=== PATIENT | female | born 1965 | race Caucasian/White ===

== ENCOUNTER 2023-09-01 14:53 | Emergency (ER) | payer OTHER, SELFPAY ==
[2023-09-01 14:55] VITALS: BP 104/32; PULSE 76; RESP 18; TEMP 36.7; O2SAT 96
--- NOTE | 2023-09-01 15:00 | DI.RAD_ITS ---
Exam(s) XR SHOULDER LT COMPLETE 2+V EXAM: XR SHOULDER LT COMPLETE 2+V CLINICAL HISTORY: L shoulder pain; fall. TECHNIQUE: 2D digital imaging was performed. Three views. COMPARISON: No exams were available for comparison FINDINGS: BONES: No acute fracture is present. No bony destructive lesion is seen. A screw is noted at the inf erior border of the scapula. JOINTS: Anterior shoulder dislocation. SOFT TISSUE: Normal. IMPRESSION: Anterior shoulder dislocation. DATA REPOSITORY: RADIATION DOSE DELIVERED:
--- NOTE | 2023-09-01 15:10 | ED.GENADUL_ITS ---
Discharge Plan Disposition Patient Disposition: Home Condition: Improving Discharge Details Chief Complaint: Orthopedic Clinical Impression: Prominence of orthopedic screw, Dislocation of shoulder Primary Care Provider: Unknown,Unknown ED Provider: Alfred Taylor Discharge Instructions Instructions: Shoulder Dislocation (ED) Additional Instructions: Please use sling as instructed. Continue with ibuprofen and/or acetaminophen as needed for pain. Follow-up close with orthopedic team next week. Please return to the emerged part for any worsening symptoms HPI General Date/Time Provider Initiated Documentation: 09/01/23 15:01 . HPI Narrative: 58-year-old female history of recurrent right shoulder dislocations, prior orthopedic procedure to right shoulder, presents after slipping and falling in mud, falling onto her right shoulder feels dislocated to her. No other injuries Related Data Allergies Allergy/AdvReac Type Severity Reaction Status Date / Time amoxicillin [From Augmentin] Allergy Intermediate Skin Rash Verified 09/01/23 15:00 clavulanic acid Allergy Intermediate Skin Rash Verified 09/01/23 15:00 [From Augmentin] General Stated Complaint: Orthopedic MARYSOL: 4 Review of Systems Narrative: Review of Systems Constitutional: negative Eyes: negative ENT: negative Cardiovascular: negative Respiratory: negative Gastrointestinal: negative : negative Musculoskeletal: Shoulder dislocation Skin: negative Neurologic: negative Psych: negative Exam Narrative Exam Narrative: Physical Examination General: alert, awake, cooperative, resting comfortably, no acute distress HEENT: normocephalic, atraumatic; PERRL, EOM intact, conjunctiva normal; no nasal discharge Neck: supple, trachea midline; full ROM Chest: normal to inspection Respiratory: normal respiratory effort, speaking in full sentences Skin: no lesions, rashes or trauma appreciated Neuro: AAOx3, normal speech Extremities: Holding right upper extremity adducted to side, empty glenoid fossa, radial pulse intact, median radial and ulnar nerve distribution intact Psych: Appropriate mood and affect Course Vital Signs Vital signs: Vital Signs Temperature 36.7 C 09/01/23 14:55 Pulse 76 09/01/23 14:55 Respiratory Rate 18 09/01/23 14:55 Blood Pressure 104/32 L 09/01/23 14:55 Pulse Oximetry 96 09/01/23 14:55 Temperature 36.7 C 09/01/23 14:55 Temperature Source Skin 09/01/23 14:55 Pulse 76 09/01/23 14:55 Respiratory Rate 18 09/01/23 14:55 Blood Pressure 104/32 L 09/01/23 14:55 Blood Pressure Position Sitting 09/01/23 14:55 Pulse Oximetry 96 09/01/23 14:55 Oxygen Delivery Method Room Air 09/01/23 14:55 Oxygen Flow Rate 0 09/01/23 14:55 Pain Level 10 09/01/23 14:55 Procedures Orthopedic Joint Reduction Joint #1: Side: right Joint Reduction Location: shoulder Analgesia: procedural sedation Shoulder Technique Used (if applicable): traction/counter-traction and external rotation Post-reduction neuro exam: intact Procedural Sedation ASA Class: I Preparation: panel monitor applied, pulse oximeter, capnometry used and suction/airway equipment at bedside IV Propofol dose (mg): 40 Patient Tolerated Procedure: well Medical Decision Making 58-year-old female history of prior shoulder dislocations presents after fall and mild on her right side, empty glenoid fossa on the right arm held in adduction to side, neurovascular exam of limb intact. No evidence of cranial thoracoabdominal trauma. Hemodynamically stable. Patient Dors that she is normally able to get her shoulder back in without medication and would like to attempt such a process. Will obtain bedside portable x-ray to confirm dislocation and exclude concomitant fracture. 15: 59 procedural sedation with propofol given level of discomfort with initial bedside manipulation. Patient placed on capnography, airway equipment at bedside, respiratory team at bedside, 0.5 mg/kg IV bolus of propofol administered, downward traction external rotation with improved anatomical alignment, placed in sling awaiting confirmatory post reduction x-ray. Patient remains neurologically intact, is returning to baseline 16: 19 patient still with some shoulder pain however glenoid is full, x-ray showing likely dislodged orthopedic screw, high clinical suspicion for concomitant rotator cuff injury, patient in sling more comfortable at this time, obtaining CT shoulder to better delineate joint anatomy. Will need close orthopedic follow-up for likely hardware removal and possible rotator cuff repair. Analgesia anti-inflammatory initiated. Patient has recovered from procedural sedation. 17: 00 patient resting comfortably no acute distress. Shoulder reduced. Prior orthopedic fixation screw within subscapularis muscle likely dislodged from initial dislocation. Patient given close follow-up with orthopedic surgery given high likelihood for rotator cuff injury as well as likely need for removal of old hardware. Quality:SDOH Health Related Social Needs: No Data to Display [facility] All Active Problems (Updated 09/01/23 @ 17:02 by Alfred Taylor MD) Dislocation of shoulder (Acute) Prominence of orthopedic screw (Acute) Social History Smoking risk assessment performed?: No
--- NOTE | 2023-09-01 15:45 | DI.RAD_ITS ---
Exam(s) XR SHOULDER RT COMPLETE 2+V EXAM: XR SHOULDER RT COMPLETE 2+V CLINICAL HISTORY: post reduction, dislocation, portable. TECHNIQUE: 2D digital imaging was performed. Five views. COMPARISON: CR,XR XR SHOULDER LT COMPLETE 2+V from 09/01/2023 FINDINGS: Exam is limited by poor penetration and positioning. The glenoid is not well visualized on the scapu lar Y-view. BONES: No acute fracture is visible but not excluded. No bony destructive lesion is seen. A screw i s again projects at the inferior border of the scapula. JOINTS: Dislocation may still be present. The scapular Y-view quite limited. SOFT TISSUE: Normal. IMPRESSION: Limited exam. Anterior dislocation versus subluxation. DATA REPOSITORY: RADIATION DOSE DELIVERED:
[2023-09-01] MEDS: Propofol 200 MG/20 ML VIAL 80 MG IVP (15:58)
--- NOTE | 2023-09-01 16:00 | DI.CT_ITS ---
Exam(s) CT UPPER EXTREMITY RT WO EXAM: CT UPPER EXTREMITY RT WO CLINICAL HISTORY: shoulder dislocation, post red, harware disruption TECHNIQUE: Imaging Protocol: Axial computed tomography images with coronal and sagittal reformatted images were created and reviewed. CONTRAST MATERIAL: None- COMPARISON: CR,XR XR SHOULDER RT COMPLETE 2+V from 09/01/2023 FINDINGS: Bones: The glenohumeral joint is normally aligned. There is moderate joint space narrowing and peria rticular spurring. There are degenerative subchondral cysts in the humeral head and glenoid. There is deformity in the posterior humeral head which could represent a Hill-Sachs deformity. There is a small bony density seen anterior to the margin of the glenoid. No cellulitic or osteomyelitic changes are identified. No lytic or sclerotic lesions are identified. Soft Tissues: Some fluid seen beneath the deltoid muscle. Screw within subscapularis muscle. Small a djacent wall corticated bony densities appear chronic. Origin of screw unclear. No lucent tracts are seen. No acute pulmonary findings. IMPRESSION: Satisfactory reduction of previously noted shoulder dislocation. The clip in the posterior humeral he ad consistent with Hill-Sachs lesion. Small fracture fragment seen at the anterior glenoid. Screw see n within subscapularis muscle with unclear origin. This is likely a chronic finding. RADIATION DOSE DELIVERED: 709.64mGy.cm Total DLP DATA REPOSITORY: All CT scans at this facility are submitted to the National Radiology Data Registry (NRDR) Dose Index Registry (DIR) with the [employer] (A[employer]). RADIATION OPTIMIZATION: All CT scans at this facility use at least one of these dose optimization te chniques: automated exposure control; mA and/or kV adjustment per patient size (includes targeted exa ms where dose is matched to clinical indication); or iterative reconstruction.
[2023-09-01] MEDS: ACETAMINOPHEN 1,000 MG/100 ML BTL 400 MG IVPB (16:14)
--- NOTE | 2023-09-01 16:14 | RESPIRATORY ---
Paged to ED for conscious sedation. Patient's pre sedation vitals SpO2 96% on RA, EtCO2 39, RR 16 and HR 67. NC with capnography placed on patient, Ambu bag set-up with flow running at 15L and nasal trumpet/oral airway at bedside. Patient's vitals during procedure: SpO2 96% on RA, EtCO2 33, RR 22 and HR 72.
[2023-09-01] MEDS: Ketorolac 15 MG/ML VIAL IVP (16:15)
[2023-09-01] MEDS: fentaNYL 100 MCG/2 ML VIAL 50 MCG IVP (16:15)
--- NOTE | 2023-09-01 16:24 | DI.VRAD_ITS ---
PROCEDURE INFORMATION: Exam: XR Left Shoulder Exam date and time: 09/01/2023 3:19 PM Age: 58 years old Clinical indication: Other: Lt shoulder fall TECHNIQUE: Imaging protocol: Radiologic exam of the left shoulder. Views: 2 or more views. COMPARISON: No relevant prior studies available. FINDINGS: Bones/joints: Humeral head is inferior and medial to the glenoid. Single fixation screw overlies the scapula medial to the humeral head. No fracture identified. The visualized lung and ribs are unremarkable. Soft tissues: No significant abnormality IMPRESSION: Anterior shoulder dislocation Dictated and Authenticated by: Jairon Townsend MD. Ordering:JOHANNY Ayoub MD
--- NOTE | 2023-09-01 16:28 | DI.VRAD_ITS ---
PROCEDURE INFORMATION: Exam: XR Right Shoulder Exam date and time: 09/01/2023 4:01 PM Age: 58 years old Clinical indication: Other: Fall, deformity TECHNIQUE: Imaging protocol: Radiologic exam of the right shoulder. Views: 2 or more views. COMPARISON: No relevant prior studies available. FINDINGS: Bones/joints: The humeral head is anterior to the glenoid. Single screw on the scapular Y-view is anterior to the scapula and may be overlying or within the axillary soft tissues. Soft tissues: No significant abnormality IMPRESSION: 1. Anterior shoulder dislocation. 2. Query whether the screw in the right axilla is overlying or within the soft tissues Dictated and Authenticated by: Jairon Townsend MD. Ordering:JHON Simon MD
--- NOTE | 2023-09-01 16:37 | NUR.NOTE ---
Nursing Note: 1545 this RN, DEBBIE, MD and RT present for reduction of the right shoulder. Time out performed. 1550 MD DEBBIE gave sedation meds, 1552 MD DEBBIE perform reduction. Patient tolerated sedation well. 1558 expressed increased pain in right shoulder and right scapula. MD ordered CT. Pain medication given as ordered patient in DI at this time.
--- NOTE | 2023-09-01 16:57 | DI.VRAD_ITS ---
PROCEDURE INFORMATION: Exam: CT Right Upper Extremity Without Contrast, Shoulder Exam date and time: 09/01/2023 4:24 PM Age: 58 years old Clinical indication: Other: Shoulder dislocation, post red, hardware disruption TECHNIQUE: Imaging protocol: Computed tomography of the right upper extremity without contrast. Exam focused on the shoulder. COMPARISON: CR XR SHOULDER RT COMPLETE 2+V 09/01/2023 4:01 PM FINDINGS: Bones/joints: Alignment of the glenohumeral joint is anatomic. No acute fracture is identified. The screw in the right axilla on the previous x-ray is within the subscapularis muscle with the tip oriented towards the scapula at the base of the coracoid. There is a well corticated ossific density anterior adjacent to the head of the screw. There is unclear if this screw was originally within the scapula or humerus. There is no definitive fluid collection surrounding the screw. The visualized lung and ribs are unremarkable. Soft tissues: See Bones/joints finding. IMPRESSION: 1. Alignment at the glenohumeral joint is now anatomic. 2. Single screw within the subscapularis muscle. Unclear whether this screw was originally within the scapula or humerus. Comparison with old films would be helpful. Dictated and Authenticated by: Jairon Townsend MD. Ordering:JHON Simon MD
[2023-09-01 17:11] VITALS: BP 120/66; PULSE 73; RESP 16; O2SAT 99
== END 2023-09-01 17:28 | disposition home or self-care (01) ==
LOC: ER 17:19
PROVIDERS: Emergency Provider Emergency Medicine
DX: S43.085A Other dislocation of left shoulder joint, initial encounter (principal); W01.0XXA Fall on same level from slipping, tripping and stumbling without subsequent striking against object, initial encounter
CPT/HCPCS: 23650; 96374; 96375; 99284; 73030; 73200; J0131; J1885; J2704; J3010

== ENCOUNTER 2024-06-05 15:25 | Outpatient (CLI) | payer OTHER, SELFPAY ==
[2024-06-05 12:45] LABS: ALT 34 U/L (14-59); AST 25 U/L (15-37); Albumin 4.1 g/dL (3.4-5.0); Alkaline Phosphatase 97 U/L (46-116); Anion Gap 7.7 mmol/L (3-11); BUN 13 mg/dL (7-18); Bilirubin, Total 0.51 mg/dL (0.2-1.0); CO2 28.3 mmol/L (21.0-32.0); Calcium 8.9 mg/dL (8.5-10.1); Calculated LDL 242 mg/dL (<100); Chloride 105 mmol/L (98-107); Cholesterol 321 mg/dL (<200); Glucose 96 mg/dL (74-106); HDL Cholesterol 53 mg/dL (40-60); Potassium 3.7 mmol/L (3.5-5.1); Sodium 141 mmol/L (136-145); TSH (W/Ref FT4) 0.63 uIU/mL (0.36-3.74); Total Protein 7.9 g/dL (6.4-8.2); Triglyceride 134 mg/dL (<150); Vitamin D 25 Total 35.8 ng/mL (30-100)
== END 2024-06-05 15:26 | disposition home or self-care (01) ==
LOC: LBO 15:27
PROVIDERS: PCP Family Medicine; Visit Provider Family Medicine
DX: E04.2 Nontoxic multinodular goiter (principal); E78.5 Hyperlipidemia, unspecified; E83.51 Hypocalcemia; E55.9 Vitamin D deficiency, unspecified
CPT/HCPCS: 36415; 80053; 80061; 82306; 84443

== ENCOUNTER 2024-07-28 02:28 | Outpatient (CLI) | payer OTHER, SELFPAY ==
--- NOTE | 2024-07-28 | DI.MAMMO_ITS ---
Exam(s) MAMMO SCREENING EXAM: MAMMO SCREENING CLINICAL HISTORY: SCREENING MAMMO Z12.31 TECHNIQUE: Bilateral full field digital CC and MLO mammographic images were obtained with 3D tomosyn thesis and utilizing computer aided detection (CAD). COMPARISON: Available for comparison. FINDINGS: Masses/Architectural Distortion: None seen. Microcalcifications: No suspicious pleomorphic-type are seen. Skin Thickening/Nipple Retraction: None. IMPRESSION: 1. No significant interval change with no specific features of malignancy noted. 2. Unless there is more urgent need, screening mammography is recommended, as per [employer] guidelines. BI-RADS Category 1 - Negative Breast Density - Category B - Scattered areas of fibroglandular density Breast density category C or D implies that the patient has dense breast tissue. Dense breast tissue is very common and is not abnormal but dense breast tissue can make it harder to find cancer on a ma mmogram. Also, dense breast tissue may increase their breast cancer risk. This information about the result of the mammogram report was provided to the patient to raise their awareness. Use this report when you speak with the patient about their risks for breast cancer, which includes their family hist ory. At that time, you may recommend for more screening tests (Ultrasound or MRI) as they might be us eful based on their risk. A negative radiographic report should not delay biopsy if a dominant or clinically suspicious mass is present. Up to ten percent of cancers are not identified on mammography. A negative report may reinforce clinical impression. Adenosis and dense breasts may obscure an underlying neoplasm. False positive reports average 6 to 10%. Patient will receive a letter notifying them of these results.
== END 2024-07-28 02:48 ==
LOC: DI 02:28
PROVIDERS: PCP Family Medicine; Visit Provider Family Medicine
DX: Z12.31 Encounter for screening mammogram for malignant neoplasm of breast (principal); R92.323 Mammographic fibroglandular density, bilateral breasts
CPT/HCPCS: 77063; 77067

== ENCOUNTER 2024-09-08 12:15 | Outpatient (REF) | payer OTHER, SELFPAY ==
[2024-09-08 14:39] LABS: ALT 29 U/L (14-59); AST 18 U/L (15-37); Albumin 3.8 g/dL (3.4-5.0); Alkaline Phosphatase 92 U/L (46-116); Bilirubin, Direct 0.1 mg/dL (0.0-0.2); Bilirubin, Total 0.4 mg/dL (0.2-1.0); Total Protein 6.8 g/dL (6.4-8.2)
[2024-09-08 15:07] LABS: Calculated LDL 92 mg/dL (<100); Cholesterol 159 mg/dL (<200); HDL Cholesterol 53 mg/dL (>or=50); Triglyceride 73 mg/dL (<150)
== END 2024-09-08 12:16 | disposition home or self-care (01) ==
LOC: NCHCN 12:15
PROVIDERS: PCP Family Medicine; Visit Provider Family Medicine
DX: E78.5 Hyperlipidemia, unspecified (principal)
CPT/HCPCS: 80061; 80076

== ENCOUNTER 2025-06-10 11:05 | Outpatient (CLI) | payer OTHER, SELFPAY ==
[2025-06-10 14:42] LABS: ALT 50 U/L (10-49); AST 35 U/L (<34); Albumin 4.2 g/dL (3.2-5.0); Alkaline Phosphatase 91 U/L (46-116); Anion Gap 8.5 mmol/L (3-11); BUN 13 mg/dL (9-23); Bilirubin, Total 0.5 mg/dL (0.2-1.2); CO2 26.5 mmol/L (20.0-31.0); Calcium 8.8 mg/dL (8.3-10.6); Chloride 109 mmol/L (98-107); Cholesterol 239 mg/dL (<200); Glucose 100 mg/dL (74-106); HDL Cholesterol 57 mg/dL (>40); Potassium 4.8 mmol/L (3.5-5.1); Sodium 144 mmol/L (136-145); TSH (W/Ref FT4) 0.42 uIU/mL (0.55-4.78); Total Protein 7.0 g/dL (5.7-8.2)
[2025-06-10 14:43] LABS: Vitamin D 25 Total 36 ng/mL (30-100)
== END 2025-06-10 11:06 | disposition home or self-care (01) ==
LOC: LBO 11:06
PROVIDERS: PCP Family Medicine; Visit Provider Family Medicine
DX: E78.5 Hyperlipidemia, unspecified (principal); E04.2 Nontoxic multinodular goiter; E55.9 Vitamin D deficiency, unspecified
CPT/HCPCS: 36415; 80053; 80061; 82306; 84439; 84443

== ENCOUNTER 2025-06-11 13:28 | Outpatient (REF) | payer OTHER, SELFPAY ==
--- NOTE | 2025-06-11 10:50 | PAPFT_PTH ---
PATIENT: Leana Grier LOC: [facility]#:[id number] AGE/SX: 59/F ROOM: RE06/11/[address]: Elda Self : 1965 BED: DIS: 06/11/2025 SPEC #: [id number] RECD: 06/11/25 16:15 STATUS: [facility] #: [id number] [place]: 06/11/25 10:[address]: Elda Self DEPT: [facility] Cytology RECD BY: Regina Gardner Tissues: 1 - CX/ENDOCX FOR PAP SMEARS Procedures: PAP THIN PREP/[facility] Screening HPV DNA PROBE Comments: [id number] (HPV 16 & 18/45)
== END 2025-06-11 13:29 | disposition home or self-care (01) ==
LOC: NCHCN 13:28
PROVIDERS: PCP Family Medicine; Visit Provider Family Medicine
DX: Z12.4 Encounter for screening for malignant neoplasm of cervix (principal)
CPT/HCPCS: 88142; 87624